=== PATIENT | female | born 1935 | race Caucasian/White ===

== ENCOUNTER 2024-02-15 11:15 | Inpatient (IN) ==
[2024-02-15] MEDS: MAGNESIUM SULFATE / D5W 1 GM/100 ML BAG IV STA (11:42)
[2024-02-15] MEDS: dilTIAZem HCl 5 MG/ML 5 ML VIAL IV STA ×2 (11:42→12:22)
--- NOTE | 2024-02-15 11:57 | Emergency Department Note ---
Impression & Plan Pneumonia, Atrial fibrillation with rapid ventricular response, SOB (shortness of breath) ED Provider Note NAME: JOANNE ROBERSON AGE: 88 SEX: F : 1935 ARRIVES VIA: Walk-In INFORMANT: Patient, ED PROVIDER(S): Salinas Rios DO CHIEF COMPLAINT: Shortness of breath HPI: The patient is an 88-year-old female who presented to the emergency department for an evaluation of shortness of breath. The patient has a history of atrial fibrillation. She has noticed a nonproductive cough. She denies having any fever or hemoptysis. She has been using [id number] medications such as Coricidin. She has a history of atrial fibrillation. She has been compliant with her outpatient medications otherwise. Has not been seen by her family doctor for any symptoms but came to the emergency department. ROS: See above HPI for pertinent positives & negatives. A total of 10 systems reviewed and were otherwise negative. PAST MEDICAL HISTORY: See Below PAST SURGICAL HISTORY: See Below FAMILY HISTORY: See Below SOCIAL HISTORY: See Below HOME MEDICATIONS: See Below ALLERGIES: See Below VITALS: See Below PHYSICAL EXAMINATION: GENERAL: The patient is awake and alert. She is somewhat anxious appearing. EYES: The conjunctivae are clear. The pupils are round and reactive. EARS, NOSE, MOUTH AND THROAT: The nose is without any evidence of any deformity. Mucous membranes are moist. Tongue is midline. NECK: The neck is nontender and supple. RESPIRATORY: Diminished breath sounds are noted through the left lung field. There is wheezing in both upper lung foreman. There was mild tachypnea. CARDIOVASCULAR: Tachycardic and irregular heart sounds were noted to auscultation. There is no definite murmur. GASTROINTESTINAL: The abdomen is soft. Abdomen is nontender. MUSCULOSKELETAL/EXTREMITIES: There is no evidence of gross deformity full range of motion is noted in the hips and shoulders. SKIN: There is no obvious evidence of any rash. There are no petechiae, pallor or cyanosis noted. NEUROLOGIC: Patient is awake alert and oriented x3 MEDICAL DECISION MAKING: The patient is an 88-year-old female who presented to the emergency department for an evaluation of difficulty breathing. The patient was having shortness of breath as well as cough. The patient did not have a fever. Lung sounds were abnormal. The patient was also found to be in atrial fibrillation with RVR. She was treated with fluid and IV Cardizem as well as IV magnesium. Chest x-ray appears to be consistent with a pulmonary infiltrate. For this reason the patient was started on a course of IV antibiotics. I discussed the patient's laboratory and radiographic studies with her. Given her findings in the emergency department I also [facility] have agreed to evaluate the patient in the department for further management and disposition. Triage Nursing notes reviewed. Prior medical records reviewed Vital Signs: reviewed and remarkable for tachycardia Differential diagnosis: Premature contractions, electrolyte abnormality, cardiac dysrhythmia, thyroid dysfunction, pulmonary embolism, infection, gastrointestinal, as well as other pathologies. ER treatment provided: See below Diagnostics interpreted by me: ECG: EKG was obtained in the emergency department. My interpretation is atrial fibrillation at 155 bpm. There was no PVCs noted. ST segment depressions were noted diffusely. This was compared to a tracing from November 07, 2020. Atrial fibrillation has replaced sinus rhythm compared to the previous tracing. Cardiac Monitoring: An order was placed for continuous cardiac monitoring. The monitor shows a rate of 123 bpm with atrial fibrillation and RVR. Laboratory studies: As stated above and show below. Imaging studies: See below. Radiographic imaging was reviewed by myself Consultation(s): Discussed case with Carol Ann who [facility] ED COURSE: Procedures: none Critical Care: I have personally spent greater than 45 minutes of critical care time in the direct management of this patient. This includes bedside care, interpretation of diagnostic studies, and testing, discussion with consultants, patient, and family members, and other required patient management activities. This 45 minutes is in excess of all separately billable procedures. Past Med/Surg History Problem List (Updated 02/15/24 @ 12:33 by Salinas Rios DO) SOB (shortness of breath) (Acute) Atrial fibrillation with rapid ventricular response (Acute) Pneumonia (Acute) Left knee pain (Acute) Travis's cyst of knee (Acute) Heart disease (Chronic) Hypertension (Chronic) DVT (deep venous thrombosis) (Chronic) Travis's cyst of knee (Acute) Social History Smoking Status: Never smoker Preferred Language: Georgian Feels Safe at Home: Yes Allergies Allergies Allergy/AdvReac Type Severity Reaction Status Date / Time aspirin Allergy Intermediate irritates Verified 02/12/24 15:14 stomach adhesive tape AdvReac Intermediate Rash Verified 02/15/24 12:25 Home Meds Home Medications Medication Instructions Recorded Confirmed apixaban 5 mg tablet (Eliquis) 5 mg PO BID 11/07/20 02/12/24 cholecalciferol (vitamin D3) 50 50 mcg PO DAILY 11/07/20 02/12/24 mcg (2,000 unit) capsule (Vitamin D3) cyanocobalamin (vitamin B-12) 1,000 mcg PO DAILY 11/07/20 02/12/24 1,000 mcg tablet (Vitamin B-12) furosemide 40 mg tablet (Lasix) 40 mg PO DAILY 11/07/20 02/12/24 loratadine 10 mg tablet (Allergy 10 mg PO DAILY 11/07/20 02/12/24 Relief (loratadine)) mirtazapine 7.5 mg tablet 7.5 mg PO HS 11/07/20 02/12/24 multivitamin 1 tab PO DAILY 11/07/20 02/12/24 ropinirole 1 mg tablet 1 mg PO QID 11/07/20 02/12/24 simvastatin 40 mg tablet 40 mg PO PM 11/07/20 02/12/24 spironolactone 25 mg tablet 25 mg PO DAILY 11/07/20 02/12/24 tamsulosin 0.4 mg capsule 0.4 mg PO DAILY 11/07/20 11/07/20 levothyroxine 100 mcg tablet 125 mcg PO DAILY 02/12/24 02/12/24 metoprolol succinate 25 mg 50 mg PO DAILY 02/12/24 02/12/24 tablet,extended release 24 hr Results & Data (ED) Vital Signs Vital Signs - 24 hr 02/15/24 11:18 02/15/24 11:34 02/15/24 11:34 Temperature 36.7 C 36.9 C Temperature Source Temporal Artery Scan Oral Pulse Rate 151 H Pulse Rate [Apical] 152 H Respiratory Rate 18 30 H Respiratory Effort / Characteristics Non-Labored Spontaneous Non-Labored Respiratory Depth Normal Normal Blood Pressure 149/101 H Blood Pressure [Right Arm] 156/128 H Blood Pressure Mean 117 Blood Pressure Mean [Right Arm] 137 Blood Pressure Position Sitting Pulse Oximetry 93 92 91 Oxygen Delivery Method Room Air Room Air Room Air Oxygen Flow Rate 0 Sepsis Recent Fever Within 48 Hours No Sepsis New/Unexplained Change in Mental Status No Sepsis Action Taken by Nursing No Action Required 02/15/24 12:30 Temperature Temperature Source Pulse Rate 123 H Pulse Rate [Apical] Respiratory Rate Respiratory Effort / Characteristics Respiratory Depth Blood Pressure Blood Pressure [Right Arm] Blood Pressure Mean Blood Pressure Mean [Right Arm] Blood Pressure Position Pulse Oximetry Oxygen Delivery Method Oxygen Flow Rate Sepsis Recent Fever Within 48 Hours Sepsis New/Unexplained Change in Mental Status Sepsis Action Taken by [facility] Medications Current Medication List: was personally reviewed by me Laboratory Data Attestation: I reviewed the patient's lab results. 02/15/24 11:41 02/15/24 11:41 Lab Results 02/15/24 Range/Units 11:41 WBC 20.14 H (4.8-10.8) K/ul RBC 4.83 (4.20-5.40) M/uL Hgb 15.1 (12.0-16.0) g/dl Hct 44.6 (37.0-47.0) % MCV 92.3 (80.0-100.0) fL MCH 31.3 (25.0-34.0) pg MCHC 33.9 (32.0-36.0) g/dL RDW Std Deviation 46.8 H (36.4-46.3) fL RDW Coeff of Rahel 13.7 (11.5-14.5) % Plt Count 302 (130-400) K/uL MPV 9.8 (9.4-12.4) fL Immature Gran % (Auto) 0.6 % Neut % (Auto) 91.1 % Lymph % (Auto) 1.8 % Cooke % (Auto) 5.1 % Eos % (Auto) 1.1 % Baso % (Auto) 0.3 % Neut # (Auto) 18.33 H (1.40-6.50) K/uL Lymph # (Auto) 0.37 L (1.20-3.40) K/uL Cooke # (Auto) 1.03 H (0.11-0.59) K/uL Eos # (Auto) 0.22 (0.00-0.50) K/uL Baso # (Auto) 0.06 (0.00-0.20) K/uL Immature Gran # (Auto) 0.13 (0.01-0.20) K/uL Toxic Vacuolation 1+ Sodium 135 L (136-145) mmol/L Potassium 4.2 (3.5-5.1) mmol/L Chloride 101 (98-107) mmol/L Carbon Dioxide 24 (21-32) mmol/L Anion Gap 10 (3-11) BUN 20 (6-23) mg/dl Creatinine 0.74 (0.6-1.2) mg/dl Est Cr Clr Drug Dosing 54.5 ml/min eGFR 78.26 BUN/Creatinine Ratio 27.0 H (10-20) Glucose 126 H (70-99(Fasting)) mg/dl Calcium 9.0 (8.6-10.3) mg/dl Magnesium 1.7 (1.7-2.4) mg/dl Total Bilirubin 2.1 H (0.2-1.0) mg/dl AST 18 (13-39) U/L ALT 21 (7-52) U/L Alkaline Phosphatase 71 (34-104) U/L Troponin I High Sens 15.6 H (0-14) pg/ml C-Reactive Protein 10.33 H (0-0.5) mg/dl Total Protein 7.1 (6.0-8.3) gm/dl Albumin 4.1 (3.4-5.0) gm/dl Globulin 3.0 (2.5-4.0) gm/dl Albumin/Globulin Ratio 1.4 (0.9-2) Administered Medications Magnesium Sulfate/Dextrose (Magnesium Sulfate / D5w) 1 gm in 100 mls @ 100 mls/hr IV NOW STA Stop: 02/15/24 12:34 Last Admin: 02/15/24 11:42 Dose: 100 mls/hr Documented By: MMF Sodium Chloride (Nss) 1,000 mls @ 999 mls/hr IV .Q1H1M ONE Stop: 02/15/24 12:57 Last Admin: 02/15/24 12:12 Dose: 999 mls/hr Documented By: MMF Discontinued Medications Diltiazem HCl (Diltiazem Hcl 5 Mg/Ml 5 Ml Vial) 10 mg IV NOW STA Stop: 02/15/24 11:36 Last Admin: 02/15/24 11:42 Dose: 10 mg Documented By: MMF Co-signed By: KMO Diltiazem HCl (Diltiazem Hcl 5 Mg/Ml 5 Ml Vial) 10 mg IV NOW STA Stop: 02/15/24 12:13 Last Admin: 02/15/24 12:22 Dose: 10 mg Documented By: FABIAN Co-signed By: SANDRA Imaging Data Attestation: I personally reviewed and interpreted this imaging study as follows: My Impression: 1 view x-ray was obtained in the emergency department. My interpretation is right middle lobe infiltrate, final report below. Radiologist's Impression: Chest X-Ray 02/15/24 11:35 XR chest 1V portable CLINICAL HISTORY: Dysrhythmia TECHNIQUE: Single frontal radiograph of the chest was obtained. Comparison: Comparison is made to chest radiograph 11/07/2020 FINDINGS: No lines and tubes are seen. Cardiomegaly is noted. There is prominence and cephalization of the vasculature with Bear B lines seen. Right upper lung airspace opacity is seen. No evidence of pleural effusion or pneumothorax. IMPRESSION: 1. Airspace opacity in the right upper lobe. This may represent atelectasis, pneumonia, and/or aspiration. 2. Cardiomegaly and moderate pulmonary edema. ACT 112: Negative or not required by law. Electronically signed by: Dennys Gutierrez M.D. 02/15/2024 12:02 PM Discharge Plan Visit Data Chief Complaint: Weakness Stated Complaint: WEAKNESS, SWEATS, NOT EATEN COUPLE DAYS ED Provider: Salinas Rios Discharge Problem: Pneumonia, Atrial fibrillation with rapid ventricular response, SOB (shortness of breath) Patient Disposition: Being Evaluated by Hospitalist Forms Stand Alone Forms: My [facility] Prescriptions Prescriptions: No Action multivitamin Tablet 1 tab PO DAILY furosemide [Lasix] 40 mg Tablet 40 mg PO DAILY ropinirole 1 mg Tablet 1 mg PO QID cyanocobalamin (vitamin B-12) [Vitamin B-12] 1,000 mcg Tablet 1,000 mcg PO DAILY spironolactone 25 mg Tablet 25 mg PO DAILY simvastatin 40 mg Tablet 40 mg PO PM tamsulosin 0.4 mg capsule 0.4 mg PO DAILY loratadine [Allergy Relief (loratadine)] 10 mg Tablet 10 mg PO DAILY mirtazapine 7.5 mg Tablet 7.5 mg PO HS cholecalciferol (vitamin D3) [Vitamin D3] 50 mcg (2,000 unit) Capsule 50 mcg PO DAILY Eliquis 5 mg Tablet 5 mg PO BID levothyroxine 100 mcg tablet 125 mcg PO DAILY metoprolol succinate 25 mg tablet extended release 24 hr 50 mg PO DAILY Referrals Referrals: PCP,NO [Physician] - Discharge Problem: Pneumonia Qualifiers: Pneumonia type: due to unspecified organism Laterality: right Lung location: m iddle lobe of lung Qualified Code(s): J18.9 - Pneumonia, unspecified organism
[2024-02-15 12:00] LABS: Hematocrit (blood only) 44.6 % (37.0-47.0); Hemoglobin 15.1 g/dl (12.0-16.0); Mean Corpuscular Hemoglobin 31.3 pg (25.0-34.0); Mean Corpuscular Hgb Conc 33.9 g/dL (32.0-36.0); Mean Corpuscular Volume 92.3 fL (80.0-100.0); Mean Platelet Volume 9.8 fL (9.4-12.4); Platelet Count 302 K/uL (130-400); RDW Coefficient of Variation 13.7 % (11.5-14.5); RDW Standard Deviation 46.8 fL (36.4-46.3); Red Blood Count 4.83 M/uL (4.20-5.40); White Blood Count 20.14 K/ul (4.8-10.8)
--- NOTE | 2024-02-15 12:03 | XRay Report ---
XR chest 1V portable CLINICAL HISTORY: Dysrhythmia TECHNIQUE: Single frontal radiograph of the chest was obtained. Comparison: Comparison is made to chest radiograph 11/07/2020 FINDINGS: No lines and tubes are seen. Cardiomegaly is noted. There is prominence and cephalization of the vasc ulature with Bear B lines seen. Right upper lung airspace opacity is seen. No evidence of pleural e ffusion or pneumothorax. IMPRESSION: 1. Airspace opacity in the right upper lobe. This may represent atelectasis, pneumonia, and/or aspir ation. 2. Cardiomegaly and moderate pulmonary edema. ACT 112: Negative or not required by law. Electronically signed by: Dennys Gutierrez M.D. 02/15/2024 12:02 PM
[2024-02-15] MEDS: SODIUM CHLORIDE 0.9% 1,000 ML IV ONE (12:12)
[2024-02-15 12:25] LABS: Albumin Globulin Ratio 1.4 (0.9-2); Albumin Level 4.1 gm/dl (3.4-5.0); Bilirubin,Total 2.1 mg/dl (0.2-1.0); C Reactive Protein 10.33 mg/dl (0-0.5); Creatinine Clr Calc Pharmacy 54.5 ml/min; Magnesium 1.7 mg/dl (1.7-2.4); Potassium 4.2 mmol/L (3.5-5.1); Total Protein 7.1 gm/dl (6.0-8.3)
[2024-02-15 12:26] LABS: Basophils # (auto) 0.06 K/uL (0.00-0.20); Basophils % (auto) 0.3 %; Eosinophils # (auto) 0.22 K/uL (0.00-0.50); Eosinophils % (auto) 1.1 %; Immature Granulocytes # (auto) 0.13 K/uL (0.01-0.20); Immature Granulocytes % (auto) 0.6 %; Lymphocytes # (auto) 0.37 K/uL (1.20-3.40); Lymphocytes % (auto) 1.8 %; Monocytes # (auto) 1.03 K/uL (0.11-0.59); Monocytes % (auto) 5.1 %; Neutrophils # (auto) 18.33 K/uL (1.40-6.50); Neutrophils % (auto) 91.1 %; Toxic Vacuolation 1+
[2024-02-15 12:29] LABS: Troponin I High Sensitivity 15.6 pg/ml (0-14)
[2024-02-15 12:35] LABS: Partial Thromboplastin Ratio 0.9; Partial Thromboplastin Time 25 Seconds (21-31); Prothrombin Time 11.1 Seconds (9.0-12.0)
[2024-02-15 12:38] LABS: Thyroid Stimulating Hormone 1.24 uIu/ml (0.300-4.500)
[2024-02-15 12:40] LABS: Influenza A virus by PCR Negative (Neg); Influenza B virus by PCR Negative (Neg); RSV by PCR Negative (Neg); SARS CoV2 RNA(COVID-19) Ceph NEGATIVE (Negative)
--- NOTE | 2024-02-15 12:42 | History & Physical Report ---
Date of Service February 15, 2024 Assessment & Plan (1) SOB (shortness of breath): (2) Atrial fibrillation with rapid ventricular response: (3) Pneumonia: (4) Hypothyroidism: (5) RLS (restless legs syndrome): (6) Dyslipidemia: (7) GERD (gastroesophageal reflux disease): (8) OXANA (obstructive sleep apnea): Plan This is an 88-year-old female with PMH of chronic atrial fibrillation on Eliquis, hypertension, dyslipidemia, hypothyroidism, OXANA, GERD, RLS following with neurology and other medical problems listed below who presents from home with progressive shortness of breath x 3 days and was found to have RUL PNA and A fib with RVR. RUL pneumonia Meets sepsis criteria given HR (also in A fib), resp rate 30, WBC 20K Lactate, procal WNL CT chest with extensive right upper lobe consolidation groundglass opacities consistent with pneumonia. Mild right lower lobe round glass opacities and a 1.4 cm left upper lobe groundglass opacity which are also likely infectious. A chest CT in 3 months to ensure resolution is recommended Continue empiric Rocephin and doxycycline Solu-medrol 40mg IV BID for today for diffuse wheezing, taper as improves Covid, Flu, RSV PCR negative, full RVP pending Atrial fibrillation with RVR EKG with A fib with HR in 150s, given Diltiazem bolus of 10mg x 2 in ED with improved HR to 130s. Starting diltiazem drip, continued monitoring in PCU Continue home Toprol 50mg daily, Eliquis for anticoagulation Keep K >4, Mg >2 (replaced in ED) Initial trop 15.6, continue to monitor Routine cards consult Pulmonary edema CXR notes cardiomegaly and moderate pulmonary edema CT chest mentions R trace pleural effusion only, appears to be more of an infectious process Given 20mg IV lasix in ED Echo from Dec 2023 with preserved EF, L atrium moderately enlarged Home diuretics schedule includes Lasix alternating 20mg and 40mg every other day, spironolactone 25mg daily - continue Cards on board as above Hypothyroidism TSH 1.240. Continue levothyroxine Restless leg syndrome Severe, follows with Dr. Shultz of neuro Continue home ropinirole QID, carbidopa-levodopa HS DVT Ppx: Eliquis Code status: FULL PCP: Natan Dispo: Admitted to PCU Patient seen in collaboration with Dr. Shah. Please see addendum. I spent a total of 75 minutes coordinating, documenting, and providing care for this patient excluding time spent in the performance of separately billed services. History of Present Illness Chief Complaint: Shortness of breath, palpitations Primary Care Provider: Veronica Gama MD This is an 88-year-old female with PMH of chronic atrial fibrillation on Eliquis, hypertension, dyslipidemia, hypothyroidism, OXANA, GERD, RLS following with neurology and other medical problems listed below who presents from home with progressive shortness of breath x 3 days. Endorses worsening cough and productive green sputum tinged with blood and SOB with associated lack of appetite. + One episode of vomiting earlier today. Had a sore throat earlier this week but that has resolved. Was seen at Urgent Care and felt to be viral URI, recommended symptomatic mgmt. Did recently complete steroid course prescribed at beginning of the month for sciatica prescribed by PCP. Denies No F/C, headache, dizziness, nausea, abd pain, dysuria, diarrhea or constipation. + Generalized weakness. Takes all medications as prescribed, including her Eliquis and Lasix this AM prior to arrival. Allergies Allergy/AdvReac Type Severity Reaction Status Date / Time aspirin Allergy Intermediate irritates Verified 02/12/24 15:14 stomach adhesive tape AdvReac Intermediate Rash Verified 02/15/24 12:25 Home Medications Medication Instructions Recorded Confirmed Type apixaban 5 mg tablet (Eliquis) 5 mg PO BID 11/07/20 02/15/24 History cholecalciferol (vitamin D3) 50 50 mcg PO DAILY 11/07/20 02/15/24 History mcg (2,000 unit) capsule (Vitamin D3) cyanocobalamin (vitamin B-12) 1,000 mcg PO DAILY 11/07/20 02/15/24 History 1,000 mcg tablet (Vitamin B-12) furosemide 40 mg tablet (Lasix) 40 mg PO UD 11/07/20 02/15/24 History loratadine 10 mg tablet (Allergy 10 mg PO DAILY 11/07/20 02/15/24 History Relief (loratadine)) mirtazapine 7.5 mg tablet 7.5 mg PO HS 11/07/20 02/15/24 History multivitamin 1 tab PO DAILY 11/07/20 02/15/24 History ropinirole 1 mg tablet 1 mg PO UD 11/07/20 02/15/24 History simvastatin 40 mg tablet 40 mg PO PM 11/07/20 02/15/24 History spironolactone 25 mg tablet 25 mg PO DAILY 11/07/20 02/15/24 History levothyroxine 100 mcg tablet 125 mcg PO DAILY 02/12/24 02/15/24 History metoprolol succinate 25 mg 50 mg PO DAILY 02/12/24 02/15/24 History tablet,extended release 24 hr carbidopa ER 50 mg-levodopa 200 mg 1 tab PO HS 02/15/24 02/15/24 History tablet,extended release levothyroxine 25 mcg tablet 25 mcg PO SUSA@0700 02/15/24 02/15/24 History Past Med/Surg History Problem List (Updated 02/15/24 @ 13:36 by Carol Ann Maciel PA-C) SOB (shortness of breath) (Acute) Atrial fibrillation with rapid ventricular response (Acute) Pneumonia (Acute) DVT (deep venous thrombosis) (Chronic) Travis's cyst of knee (Acute) Medical History (Updated 02/15/24 @ 13:36 by Carol Ann Maciel PA-C) RLS (restless legs syndrome) GERD (gastroesophageal reflux disease) Chronic atrial fibrillation Dyslipidemia OXANA (obstructive sleep apnea) Hypothyroidism Hypertension Travis's cyst of knee Surgical History (Updated 02/15/24 @ 13:37 by Carol Ann Maciel PA-C) History of appendectomy History of abdominal hysterectomy Family History (Updated 02/15/24 @ 13:37 by Carol Ann Maciel PA-C) Other Stroke Social History Smoking Status: Former smoker Hx Alcohol Use: Yes Alcohol type: wine Hx Substance Use: No Preferred Language: Welsh Communication Ability: Effective 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 Physical Exam Physical Exam: Please see Dr. Shah's addendum for physical exam. Results & Data Results & Data Vital Signs (Past 12 Hours) Vital Signs Temp Pulse Pulse Resp BP BP Pulse Ox 02/15/24 12:30 123 H 02/15/24 11:34 36.9 C 152 H 30 H 156/128 H 91 02/15/24 11:34 92 02/15/24 11:18 36.7 C 151 H 18 149/101 H 93 O2 Del Method O2 Flow Rate 02/15/24 12:30 02/15/24 11:34 Room Air 02/15/24 11:34 Room Air 0 02/15/24 11:18 Room Air Laboratory Results Short CBC 02/15/24 Range/Units 11:41 WBC 20.14 H (4.8-10.8) K/ul Hgb 15.1 (12.0-16.0) g/dl Hct 44.6 (37.0-47.0) % Plt Count 302 (130-400) K/uL BMP 02/15/24 11:41 Sodium 135 L Potassium 4.2 Chloride 101 Carbon Dioxide 24 BUN 20 Creatinine 0.74 Glucose 126 H Calcium 9.0 Liver Function 02/15/24 Range/Units 11:41 Total Bilirubin 2.1 H (0.2-1.0) mg/dl AST 18 (13-39) U/L ALT 21 (7-52) U/L Alkaline Phosphatase 71 (34-104) U/L Albumin 4.1 (3.4-5.0) gm/dl Diagnostic Findings Chest X-Ray 02/15/24 11:35 XR chest 1V portable CLINICAL HISTORY: Dysrhythmia TECHNIQUE: Single frontal radiograph of the chest was obtained. Comparison: Comparison is made to chest radiograph 11/07/2020 FINDINGS: No lines and tubes are seen. Cardiomegaly is noted. There is prominence and cephalization of the vasculature with Bear B lines seen. Right upper lung airspace opacity is seen. No evidence of pleural effusion or pneumothorax. IMPRESSION: 1. Airspace opacity in the right upper lobe. This may represent atelectasis, pneumonia, and/or aspiration. 2. Cardiomegaly and moderate pulmonary edema. ACT 112: Negative or not required by law. Electronically signed by: Dennys Gutierrez M.D. 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 Patient also reports nausea and vomiting today. Patient denies fever, acute changes in bowel or bladder habit. Patient reports sore throat getting better, reports appetite being poor. Patient denies belly pain/headache/dizziness. Patient reports ongoing weakness. Patient denies smoking/alcohol/recreational drug use. Full code as per my discussion with the patient and her at bedside. Labs reviewed, WBC elevated, T. bili 2.1, troponin at 15.6, CRP 10.33, BNP 267, procalcitonin and TSH WNL. Respiratory pathogen panel screen negative. CXR with RUL opacity, moderate pulmonary edema. EKG with A-fib RVR, rate 155. Active problems: RUL pneumonia/sepsis POA due to pneumonia: Heart rate/respiratory rate/WBC elevated at presentation. Follow admitting blood culture. Send sputum culture. Patient received ceftriaxone in the ED, continue. Add doxycycline. Solu-Medrol 40 Mg IV twice daily [wheezing present at bedside exam]. Taper down steroid as clinical condition improves. Pulmonary edema: Will discontinue IV fluid started at the ED, will give her a small dose of IV Lasix (20 mg) as patient noted to have audible crackles and wheezing at bedside exam. Recent echo from 01/16/2024: EF of 55 to 59%, LV cavity size and LV wall motion normal. Left atrium moderately enlarged. will defer to cardiology team if we need repeat echo. continue home diuresis from tomorrow. Repeat LFT in AM A-fib RVR: Admitting EKG with heart rate of 155, patient received Cardizem 10 Mg IV x 2 doses. Heart rate in high 110s at bedside exam. Will start patient on Cardizem drip, continue home metoprolol. Monitor replete electrolytes to keep K greater than 4 and Mg greater than 2. Trend troponin. On exam: GENERAL: Alert and oriented x3. NAD, on RA. appears ill/weak/sick. HEENT: No pallor, no icterus. Pupils equal, round and reactive to light. Oral mucosa moist. NECK: No JVD, no neck masses. HEART: S1 and S2 heard. irregular rate and rhythm. in 110s. No murmur, no gallop. RESPIRATORY SYSTEM: Normal AP diameter. No accessory muscle use. bl wheezing, bl crackles. ABDOMEN: Soft, bowel sounds present, nontender, no distention. CENTRAL NERVOUS SYSTEM: No facial droop. Speech is clear. Obeys simple commands. Moves extremities. EXTREMITIES: No edema, no erythema seen. I have seen and examined the patient and have discussed the case with the provider above. I agree with the assessment and plan as stated. Time spent: 35 min. (3) Pneumonia Laterality: right Lung location: middle lobe of lung Pneumonia type: due to unspecified organism Qualified Code(s): J18.9 - Pneumonia, unspecified organism
[2024-02-15] MEDS ORDERED: methylPREDNISolone 125 MG/2 ML VIAL IV SCH (13:15)
[2024-02-15] MEDS ORDERED: STAT IV Infusion **Titration per Protocol STA (13:17)
[2024-02-15] MEDS: cefTRIAXone SODIUM 2,000 MG/50 ML BAG IV STA (13:34)
[2024-02-15] MEDS: FUROSEMIDE INJ 20 MG/2 ML VIAL IV ONE (13:39)
--- NOTE | 2024-02-15 14:06 | CT Scan Report ---
CT OF THE CHEST WITHOUT IV CONTRAST CLINICAL HISTORY: ro pna, extent of pul edema, ? pl eff COMPARISON STUDY: Chest radiographs November 07, 2020 and February 15, 2024. CT DOSE: 475.66 mGy.cm TECHNIQUE: Axial images of the chest were obtained without IV contrast. Images were reviewed in the axial, sagittal, and coronal planes. IV contrast was not administered for this examination. Automat ed exposure control was utilized for the study. A dose lowering technique was utilized adhering to t he principles of ALARA. FINDINGS: Heart is moderately enlarged. Prominent partially calcified paratracheal lymph nodes are l ikely benign. Subcarinal calcified lymph nodes are benign. There is a calcified right hilar lymph nod e. There is no pericardial effusion. There is a trace right pleural effusion. There is no pneumothora x. Extensive right upper lobe airspace opacities are present with consolidation and ground glass opac ities. There are mild ground glass opacities within the right lower lobe and a 1.4 cm left upper lobe groundglass opacity on image 44 of 229. There is no central obstructing mass. There is no cavitation . Water attenuation left upper pole renal lesion is partially imaged. This probably reflects a cyst. IMPRESSION: 1. Extensive right upper lobe consolidation groundglass opacities consistent with pneumonia. Mild rig ht lower lobe round glass opacities and a 1.4 cm left upper lobe groundglass opacity which are also l ikely infectious. A chest CT in 3 months to ensure resolution is recommended. 2. Trace right pleural effusion. 3. Cardiomegaly. 4. Evidence for a previous granulomatous process. ACT 112: Negative or not required by law. Electronically signed by: David Reynoso M.D. 02/15/2024 2:04 PM
[2024-02-15] MEDS: dilTIAZem HCL 125 MG in DEXTROSE 5% 100 ML IV SCH (14:09)
--- NOTE | 2024-02-15 14:30 | Electrocardiogram Report ---
Test Reason : Blood Pressure : */* mmHG Vent. Rate : 155 BPM Atrial Rate : * BPM P-R Int : * ms QRS Dur : 64 ms QT Int : 278 ms P-R-T Axes : * -40 130 degrees QTcB Int : 446 ms Atrial fibrillation with rapid ventricular response Left axis deviation Abnormal ECG When compared with ECG of 07-Nov-2020 22:44, Atrial fibrillation has replaced Sinus rhythm Vent. rate has increased by 89 bpm Confirmed by Shamir Vazquez ([id number]) on 02/15/2024 2:29:47 PM Referred By: REFERRED SELF Confirmed By: Shamir Vazquez
[2024-02-15] MEDS: methylPREDNISolone 40 MG in SYRINGE 0 ML IV SCH (15:12)
[2024-02-15] MEDS ORDERED: ONDANSETRON INJ 2 MG/ML 2 ML VIAL IV PRN (15:46)
[2024-02-15] MEDS ORDERED: ACETAMINOPHEN 325 MG TAB PO PRN (15:46)
[2024-02-15] MEDS ORDERED: POLYETHYLENE (MIRALAX) 17 GM PACK PO PRN (15:46)
[2024-02-15 15:52] LABS: Adenovirus PCR Not Detected (NotDetected); Bordetella parapertussis PCR Not Detected (NotDetected); Bordetella pertussis PCR Not Detected (NotDetected); Chlamydia pneumoniae PCR Not Detected (NotDetected); Coronavirus 229E PCR Not Detected (NotDetected); Coronavirus CoV-2 (COVID19)PCR Not Detected (NotDetected); Coronavirus HKU1 PCR Not Detected (NotDetected); Coronavirus NL63 PCR Not Detected (NotDetected); Coronavirus OC43PCR Not Detected (NotDetected); Human Metapneumovirus PCR Not Detected (NotDetected); Influenza A PCR Not Detected (NotDetected); Influenza B PCR Not Detected (NotDetected); Mycoplasma pneumoniae PCR Not Detected (NotDetected); Parainfluenza Virus 1 PCR Not Detected (NotDetected); Parainfluenza Virus 2 PCR Not Detected (NotDetected); Parainfluenza Virus 3 PCR Not Detected (NotDetected); Parainfluenza Virus 4 PCR Not Detected (NotDetected); Respiratory Syncytial VirusPCR Not Detected (NotDetected); Rhinovirus/Enterovirus PCR Not Detected (NotDetected)
[2024-02-15] MEDS: rOPINIRole HCL 1 MG TABLET PO SCH ×2 (16:31→19:54)
[2024-02-15] MEDS: DOXYCYCLINE HYCLATE 100 MG in DEXTROSE 5% MINI-B 100 ML IV SCH (19:51)
[2024-02-15] MEDS: APIXABAN 5 MG TABLET PO SCH (19:54)
[2024-02-15] MEDS: MIRTAZAPINE TAB 15 MG TAB PO SCH (19:54)
[2024-02-15] MEDS: CARBIDOPA/LEVODOPA 50/200MG EXT REL TAB PO SCH (19:54)
[2024-02-15 20:16] LABS: Appearance Urine Clear (Clear); Bacteria Urine Automated None Seen (None Seen); Bilirubin Urine Negative (Negative); Blood Urine Negative (Negative); Cast Urine Automated 0-2 /lpf (0-2); Color Urine Orange; Epithelial Cell Urine Auto 0-2 /hpf (0-2); Glucose Urine UA Negative (Negative); Ketones Urine Negative (Negative); Leukocyte Esterase Urine Trace (Negative); Nitrite Urine Negative (Negative); Protein Urine Negative (Negative); RBC Urine Automated 0-2 /hpf (0-2); Specific Gravity Urine 1.008 (1.000-1.030); Urobilinogen Urine Negative (Negative); WBC Urine Automated 0-5 /hpf (0-5)
[2024-02-15] MEDS ORDERED: methylPREDNISolone 40 MG in SYRINGE 0 ML IV SCH (21:00)
[2024-02-15] MEDS ORDERED: SIMVASTATIN 40 MG TAB PO SCH (21:00)
[2024-02-16] MEDS: LEVOTHYROXINE SODIUM 100 MCG TABLET PO SCH (05:49)
[2024-02-16] MEDS ORDERED: LEVOTHYROXINE SODIUM 125 MCG TABLET PO SCH (06:30)
[2024-02-16 06:42] LABS: Hematocrit (blood only) 38.6 % (37.0-47.0); Hemoglobin 13.6 g/dl (12.0-16.0); Mean Corpuscular Hemoglobin 31.6 pg (25.0-34.0); Mean Corpuscular Hgb Conc 35.2 g/dL (32.0-36.0); Mean Corpuscular Volume 89.8 fL (80.0-100.0); Mean Platelet Volume 10.4 fL (9.4-12.4); Platelet Count 286 K/uL (130-400); RDW Coefficient of Variation 13.3 % (11.5-14.5); RDW Standard Deviation 43.9 fL (36.4-46.3); White Blood Count 16.92 K/ul (4.8-10.8)
[2024-02-16 07:13] LABS: Albumin Globulin Ratio 1.3 (0.9-2); Albumin Level 3.9 gm/dl (3.4-5.0); BUN Creatinine Ratio 31.7 (10-20); Calcium 8.5 mg/dl (8.6-10.3); Creatinine Clr Calc Pharmacy 66.2 ml/min; Globulin 3.1 gm/dl (2.5-4.0); Magnesium 2.1 mg/dl (1.7-2.4); Potassium 3.9 mmol/L (3.5-5.1)
[2024-02-16 07:26] LABS: Troponin I High Sensitivity 13.1 pg/ml (0-14)
[2024-02-16] MEDS: FUROSEMIDE 20 MG TAB PO SCH (07:46)
[2024-02-16] MEDS: MULTIVITAMIN TAB PO SCH (07:46)
[2024-02-16] MEDS: LORATADINE 10 MG TAB PO SCH (07:47)
[2024-02-16] MEDS: CYANOCOBALAMIN (B-12) 500 MCG TABLET PO SCH (07:47)
[2024-02-16] MEDS: METOPROLOL SUCC 50MG EXT REL TAB PO SCH ×2 (07:47→20:02)
[2024-02-16] MEDS: SPIRONOLACTONE 25 MG TAB PO SCH (07:47)
[2024-02-16] MEDS: CHOLECALCIFEROL 25 MCG (1000 UNITS) TAB PO SCH (07:48)
--- NOTE | 2024-02-16 07:59 | Electrocardiogram Report ---
Test Reason : Blood Pressure : */* mmHG Vent. Rate : 96 BPM Atrial Rate : 277 BPM P-R Int : * ms QRS Dur : 78 ms QT Int : 334 ms P-R-T Axes : * -15 152 degrees QTcB Int : 421 ms Atrial fibrillation with premature ventricular or aberrantly conducted complexes Possible Old Septal infarct (cited on or before 15-Feb-2024) Abnormal ECG When compared with ECG of 15-Feb-2024 11:32, Vent. rate has decreased by 59 bpm Borderline Criteria for Septal infarct now present Confirmed by Shamir Vazquez ([id number]) on 02/16/2024 7:59:13 AM Referred By: REFERRED SELF Confirmed By: Shamir Vazquez
--- NOTE | 2024-02-16 08:43 | Cardiology Consultation ---
Date of Consultation February 16, 2024 Assessment & Plan (1) Pneumonia: (2) Atrial fibrillation with rapid ventricular response: (3) Hypertension: Plan Patient admitted with worsening cough, SOB. Diagnosed with right upper lobe pneumonia. Elevated WBC consistent with infection. started on antibiotics. She has known chronic afib. Elevated rates on admission, consistent with acute illness. Recently metoprolol increased to 50 mg daily as an outpatient. will increase to 50 mg BID. she is currently on diltiazem gtt. Discussed with nurse to try and wean this as able. Continue anticoagulation with Eliquis 5 mg BID. BP initially elevated but improved. Recent outpatient echo with preserved LVEF. Minimally elevated HS troponin at 17 consistent with afib RVR. No symptoms to suggest ischemia. Continue outpatient meds including furosemide, spironolactone. Continue statin. Case discussed with Dr. Barth I spent a total of 55 minutes on the date of service in preparation, delivery, and documentation of the care provided to this patient, excluding any time spent in the performance of separately billed services. Nayeli Lund PA-C Department of Cardiology, [facility] This chart was completed in part utilizing Speech Voice Recognition Software. Grammatical errors, random word insertions, pronoun errors, and incomplete sentences are an occasional consequence of this system due to software limitations, ambient noise, and hardware issues. Any formal questions or concerns about the content, text, or information contained within the body of this dictation should be directly addressed to the provider for clarification. Supervising Physician Co-Signing Physician Notes I have personally performed a history and physical examination on the patient. I have reviewed the advance practitioner's documentation, and I agree with, and take responsibility for the plan of care. 88-year-old female presents to the emergency department due to cough and shortness of breath. Diagnosed with right sided pneumonia. Cardiology consultation requested due to atrial fibrillation with rapid ventricular response. History of chronic atrial fibrillation. Toprol-XL recently titrated 50 mg daily to improve rate control after review of ZIO monitor. She is chronically anticoagulant Eliquis. Heart rates improved with IV diltiazem infusion. Recommend wean diltiazem infusion as tolerated. Toprol-XL titrated to 50 mg twice daily. Continue telemetry monitoring and oral anticoagulation with Eliquis. I spent a total of 30 minutes on the date of service in preparation, delivery, and documentation of the care provided to this patient, excluding any time spent in the performance of separately billed services. Celestino Barth DO, [facility] History of Present Illness Reason for Consultation: SOB; Afib RVR Requesting Physician: Ju Hospitalist Attending Physician: Dr. Barth History of Present Illness Patient is an 88 year old female who presented to [facility] with complaints of cough, SOB. Diagnosed with right upper lobe pneumonia and started on antibiotics. WBC 20.14 on admission. Improving to 16.9 on 02/15. UPon admission, found to have afib RVR on admission. She has known/chronic afib. Recent outpatient zio with 100% burden of afib with average rate of 97 bmp. Metoprolol increased to 50 mg daily. She is appropriately anticoagulated with Eliquis. Elevated rates likely due to acute illness. She was started on IV diltiazem to aid with rate control. HS troponin minimally elevated at 15.6 - 17.8, then normalized at 13.1 TSH was normal. Respiratory panel was negative. Blood culture pending x2. Sputum culture pending Recently established with Levar Sanders PA-C in Dec 2023 Previously followed by [employer] in [place] but now will reside here locally. She had recent echo in Dec with normal LVEF 55%, moderate aortic sclerosis without stenosis. 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 SOB/Cough improving. She denies chest pain. She denies symptoms of palpitations or tachypalpitations. No orthopnea, PND or edema. History includes: 1. Atrial fibrillation 2. Coronary artery calcification 3. Hypertension 4. Dyslipidemia 5. GERD 6. Barretts esophagus with esophagitis 7. Hypothyroidism 8. Obstructive sleep apnea 9. Left upper lobe pulmonary nodule 10. Imaging with sequela of prior granulomatous infection Allergies Allergy/AdvReac Type Severity Reaction Status Date / Time aspirin Allergy Intermediate irritates Verified 02/12/24 15:14 stomach adhesive tape AdvReac Intermediate Rash Verified 02/15/24 12:25 Home Medications Medication Instructions Recorded Confirmed Type apixaban 5 mg tablet (Eliquis) 5 mg PO BID 11/07/20 02/15/24 History cholecalciferol (vitamin D3) 50 50 mcg PO DAILY 11/07/20 02/15/24 History mcg (2,000 unit) capsule (Vitamin D3) cyanocobalamin (vitamin B-12) 1,000 mcg PO DAILY 11/07/20 02/15/24 History 1,000 mcg tablet (Vitamin B-12) furosemide 40 mg tablet (Lasix) 40 mg PO UD 11/07/20 02/15/24 History loratadine 10 mg tablet (Allergy 10 mg PO DAILY 11/07/20 02/15/24 History Relief (loratadine)) mirtazapine 7.5 mg tablet 7.5 mg PO HS 11/07/20 02/15/24 History multivitamin 1 tab PO DAILY 11/07/20 02/15/24 History ropinirole 1 mg tablet 1 mg PO UD 11/07/20 02/15/24 History simvastatin 40 mg tablet 40 mg PO PM 11/07/20 02/15/24 History spironolactone 25 mg tablet 25 mg PO DAILY 11/07/20 02/15/24 History levothyroxine 100 mcg tablet 125 mcg PO DAILY 02/12/24 02/15/24 History metoprolol succinate 25 mg 50 mg PO DAILY 02/12/24 02/15/24 History tablet,extended release 24 hr carbidopa ER 50 mg-levodopa 200 mg 1 tab PO HS 02/15/24 02/15/24 History tablet,extended release levothyroxine 25 mcg tablet 25 mcg PO SUSA@0700 02/15/24 02/15/24 History Patient History Medical History (Updated 02/16/24 @ 08:50 by Nayeli Lund PA-C) RLS (restless legs syndrome) GERD (gastroesophageal reflux disease) Chronic atrial fibrillation Dyslipidemia OXANA (obstructive sleep apnea) Hypothyroidism Hypertension Travis's cyst of knee Surgical History (Updated 02/15/24 @ 13:37 by Carol Ann Maciel PA-C) History of appendectomy History of abdominal hysterectomy Family History (Updated 02/15/24 @ 13:37 by Carol Ann Maciel PA-C) Other Stroke Social History Smoking Status: Former smoker Hx Alcohol Use: Yes Alcohol type: wine Hx Substance Use: No Preferred Language: Panamanian Communication Ability: Effective [employer] Required: No Beliefs That Will Affect Care: None Current Living Situation: Spouse Other Information That Helps Us Care for You: No Feels Safe at Home: Yes Safety Concerns: Feels Safe At This Time Assistive Devices: Cane and Walker Review of Systems Review of Systems: All systems reviewed & are unremarkable except as noted in HPI & below Physical Exam Constitutional: WD/WN, vitals as above no acute distress Neck: trachea midline, no thyromegaly Respiratory: no labored breathing Auscultation: + diminished lung sounds; no crackles and no rales Cardiovascular: Rate/Rhythm: + irregularly irregular Heart Sounds: + murmur (II/ systolic murmur) Vessels: no JVD Extremities: no edema Gastrointestinal (Abdomen): normal bowel sounds, soft, nontender, no hepatosplenomegaly Neurologic: PERRL, EOMI, accommodation nl, no face palsy, no dysarthria Psychiatric: A+Ox3, euthymic affect Results & Data Vital Signs (Past 12 Hours) Vital Signs Temp Pulse Resp BP BP Pulse Ox O2 Del Method 02/16/24 07:20 37.0 C 109 H 18 150/86 H 94 Room Air 02/16/24 02:56 36.6 C 104 H 18 131/73 94 Room Air 02/15/24 23:21 36.9 C 101 H 20 113/84 93 Room Air Laboratory Results Cardiac Enzymes 02/15/24 02/15/24 02/16/24 Range/Units 11:41 17:41 05:29 AST 18 14 (13-39) U/L Troponin I High Sens 15.6 H 17.8 H 13.1 D (0-14) pg/ml B-Natriuretic Peptide 267 H (0-100) pg/ml Coagulation 02/15/24 Range/Units 11:41 PT 11.1 (9.0-12.0) Seconds APTT 25 (21-31) Seconds B-Natriuretic Peptide 267 H (0-100) pg/ml CBC 02/15/24 02/16/24 Range/Units 11:41 05:29 WBC 20.14 H 16.92 H (4.8-10.8) K/ul RBC 4.83 4.30 (4.20-5.40) M/uL Hgb 15.1 13.6 (12.0-16.0) g/dl Hct 44.6 38.6 (37.0-47.0) % Plt Count 302 286 (130-400) K/uL Neut # (Auto) 18.33 H (1.40-6.50) K/uL Lymph # (Auto) 0.37 L (1.20-3.40) K/uL [place] # (Auto) 1.03 H (0.11-0.59) K/uL Eos # (Auto) 0.22 (0.00-0.50) K/uL Baso # (Auto) 0.06 (0.00-0.20) K/uL Comprehensive Metabolic Panel 02/15/24 02/16/24 Range/Units 11:41 05:29 Sodium 135 L 135 L (136-145) mmol/L Potassium 4.2 3.9 (3.5-5.1) mmol/L Chloride 101 101 (98-107) mmol/L Carbon Dioxide 24 23 (21-32) mmol/L BUN 20 19 (6-23) mg/dl Creatinine 0.74 0.60 (0.6-1.2) mg/dl Glucose 126 H 172 H (70-99(Fasting)) mg/dl Calcium 9.0 8.5 L (8.6-10.3) mg/dl AST 18 14 (13-39) U/L ALT 21 3 L (7-52) U/L Alkaline Phosphatase 71 64 (34-104) U/L Total Protein 7.1 7.0 (6.0-8.3) gm/dl Albumin 4.1 3.9 (3.4-5.0) gm/dl Intake and Output 02/15/24 02/16/24 02/16/24 22:59 06:59 14:59 Intake Total 105.917 / 1213.750 257.833 / 1213.750 64.334 / 64.334 Output Total 650 / 650 Balance 105.917 / 563.750 -392.167 / 563.750 64.334 / 64.334 Intake: IV 105.917 / 1063.750 107.833 / 1063.750 64.334 / 64.334 Doxycycline Hyclate 100 mg In 100 / 100 Dextrose 5% Mini-B 100 ml @ 50 mls/hr IV Q12H [facility] Rx#:[id number] dilTIAZem HCL 125 mg In 5.917 / 113.750 107.833 / 113.750 64.334 / 64.334 Dextrose 5% 100 ml @ 10 MG/HR 10 mls/hr IV .[id number] [facility] Rx#: [id number] Oral 150 / 150 Output: Urine Amount (Catheter) 650 / 650 External 650 / 650 Other: # Unmeasured Voids 1 Weight 76.6 kg Weight Measurement Method Built in Bedscale Built in [facility] Diagnostic Findings Telemetry reviewed: Atrial fibrillation with variable ventricular rates ranging 90-130's EKG reviewed from admission dated 02/14/23: Afib with RVR at 155 bmp LAD Compared with outpatient EKG in Dec 2023, ventricular rates are faster No acute ischemic changes Repeat EKG from 02/16/24: Afib with improved ventricular rates at 96 bmp Possible old septal infarct No ischemic changes Chest X-Ray 02/15/24 11:35 XR chest 1V portable CLINICAL HISTORY: Dysrhythmia TECHNIQUE: Single frontal radiograph of the chest was obtained. Comparison: Comparison is made to chest radiograph 11/07/2020 FINDINGS: No lines and tubes are seen. Cardiomegaly is noted. There is prominence and cephalization of the vasculature with Bear B lines seen. Right upper lung airspace opacity is seen. No evidence of pleural effusion or pneumothorax. IMPRESSION: 1. Airspace opacity in the right upper lobe. This may represent atelectasis, pneumonia, and/or aspiration. 2. Cardiomegaly and moderate pulmonary edema. ACT 112: Negative or not required by law. tronically signed by: Dennys Gutierrez M.D. 02/15/2024 12:[address] 02/15/24 13:02 CT OF THE CHEST WITHOUT IV CONTRAST CLINICAL HISTORY: ro pna, extent of pul edema, ? pl eff COMPARISON STUDY: Chest radiographs November 07, 2020 and February 15, 2024. CT DOSE: 475.66 mGy.cm TECHNIQUE: Axial images of the chest were obtained without IV contrast. Images were reviewed in the axial, sagittal, and coronal planes. IV contrast was not administered for this examination. Automated exposure control was utilized for the study. A dose lowering technique was utilized adhering to the principles of ALARA. FINDINGS: Heart is moderately enlarged. Prominent partially calcified paratracheal lymph nodes are likely benign. Subcarinal calcified lymph nodes are benign. There is a calcified right hilar lymph node. There is no pericardial effusion. There is a trace right pleural effusion. There is no pneumothorax. Extensive right upper lobe airspace opacities are present with consolidation and ground glass opacities. There are mild ground glass opacities within the right lower lobe and a 1.4 cm left upper lobe groundglass opacity on image 44 of 229. There is no central obstructing mass. There is no cavitation. Water attenuation left upper pole renal lesion is partially imaged. This probably reflects a cyst. IMPRESSION: 1. Extensive right upper lobe consolidation groundglass opacities consistent with pneumonia. Mild right lower lobe round glass opacities and a 1.4 cm left upper lobe groundglass opacity which are also likely infectious. A chest CT in 3 months to ensure resolution is recommended. 2. Trace right pleural effusion. 3. Cardiomegaly. 4. Evidence for a previous granulomatous process. Prior outside data reviewed: January 16, 2024 TTE Interpretation Summary (as per Dr. Chaney): There was atrial fibrillation during the examination, rates 90-100 beats per minute. The left ventricular cavity size is normal. The LV wall thickness is moderately increased (concentric). The qualitative LV ejection fraction is 55-59% (normal). The left atrium is moderately enlarged. Moderate aortic valve sclerosis is present. There is moderate mitral annular calcification. There is restricted mobility of the posterior leaflet. Moderate mitral regurgitation is present. Moderate tricuspid regurgitation is present. January 17, 2024 EKG: Atrial fibrillation with a ventricular rate of 90 bpm. QTc 462 ms. [facility] report reviewed dated Dec 2023: Final Interpretation Atrial Fibrillation occurred continuously (100% burden), ranging from 47- 168 bpm (avg of 97 bpm). Isolated VEs were rare (<1.0%), VE Couplets were rare (<1.0%), and no VE Triplets were present. 1 patient triggered event and 1 diary events were submitted for interpretation. Interpretation of the events is technically limited due to the presence of artifact. One event it was associated with atrial fibrillation with ventricular rate 96-158 beats per minute. The other event correlates with the atrial fibrillation with occasional PVCs. Metoprolol increased to 50 mg after the monitor results were reviewed Medications Administered Current Inpatient Medications Acetaminophen (Acetaminophen 325 Mg Tab) 650 mg PO Q4H PRN PRN Reason: Pain or Fever Stop: 03/16/24 15:45 Apixaban (Apixaban 5 Mg Tablet) 5 mg PO BID [facility] Stop: 03/16/24 20:59 Last Admin: 02/16/24 07:48 Dose: 5 mg Carbidopa/Levodopa (Carbidopa/Levodopa 50/200mg Ext Rel Tab) 1 tab PO HS [facility] Stop: 03/16/24 20:59 Last Admin: 02/15/24 19:54 Dose: 1 tab Cyanocobalamin (Cyanocobalamin (B-12) 500 Mcg Tablet) 1,000 mcg PO DAILY [facility] Stop: 03/17/24 08:59 Last Admin: 02/16/24 07:47 Dose: 1,000 mcg Furosemide (Furosemide 40 Mg Tab) 40 mg PO Q2D@0900 [facility] Stop: 03/18/24 08:59 Furosemide (Furosemide 20 Mg Tab) 20 mg PO Q2D [facility] Stop: 03/17/24 08:59 Last Admin: 02/16/24 07:46 Dose: 20 mg Doxycycline Hyclate 100 mg/ (Dextrose) 100 mls @ 50 mls/hr IV Q12H [facility] Stop: 02/22/24 13:14 Last Admin: 02/16/24 06:33 Dose: 50 mls/hr Diltiazem HCl 125 mg/ Dextrose 125 mls @ 15 mls/hr IV .Q8H20M [facility]; Protocol Stop: 03/16/24 13:29 Last Titration: 02/16/24 08:33 Dose: 15 mg/hr, 15 mls/hr Methylprednisolone 40 mg/ (Syringe) 0.64 mls @ 1.5 mls/min IV BID [facility] Stop: 03/16/24 13:59 Last Admin: 02/16/24 07:48 Dose: 1.5 mls/min Ceftriaxone Sodium (Rocephin) 2,000 mg in 50 mls @ 100 mls/hr IV Q24H [facility] Stop: 02/23/24 12:59 Levothyroxine Sodium (Levothyroxine Sodium 125 Mcg Tablet) 125 mcg PO SuSa@0630 [facility] Stop: 03/18/24 06:29 Levothyroxine Sodium (Levothyroxine Sodium 100 Mcg Tablet) 100 mcg PO MoTuWeThFr@0630 [facility] Stop: 03/17/24 06:29 Last Admin: 02/16/24 05:49 Dose: 100 mcg Loratadine (Loratadine 10 Mg Tab) 10 mg PO DAILY [facility] Stop: 03/17/24 08:59 Last Admin: 02/16/24 07:47 Dose: 10 mg Metoprolol Succinate (Metoprolol Succ 50mg Ext Rel Tab) 50 mg PO DAILY [facility] Stop: 03/17/24 08:59 Last Admin: 02/16/24 07:47 Dose: 50 mg Mirtazapine (Mirtazapine Tab 15 Mg Tab) 7.5 mg PO HS [facility] Stop: 03/16/24 20:59 Last Admin: 02/15/24 19:54 Dose: 7.5 mg Multivitamins (Multivitamin Tab) 1 tab PO DAILY [facility] Stop: 03/17/24 08:59 Last Admin: 02/16/24 07:46 Dose: 1 tab Ondansetron HCl (Ondansetron Inj 2 Mg/Ml 2 Ml Vial) 4 mg IV Q6H PRN PRN Reason: Nausea Stop: 03/16/24 15:45 Polyethylene Glycol (Polyethylene (Miralax) 17 Gm Pack) 17 gm PO DAILY PRN PRN Reason: Constipation Stop: 03/16/24 15:45 Ropinirole HCl (Ropinirole Hcl 1 Mg Tablet) 1 mg PO TID@0900,1300,1700 [facility] Stop: 03/16/24 16:59 Last Admin: 02/16/24 07:46 Dose: 1 mg Ropinirole HCl (Ropinirole Hcl 1 Mg Tablet) 2 mg PO HS [facility] Stop: 03/16/24 20:59 Last Admin: 02/15/24 19:54 Dose: 2 mg Simvastatin (Simvastatin 40 Mg Tab) 40 mg PO PM [facility] Stop: 03/16/24 20:59 Spironolactone (Spironolactone 25 Mg Tab) 25 mg PO DAILY [facility] Stop: 03/17/24 08:59 Last Admin: 02/16/24 07:47 Dose: 25 mg Vitamin D (Cholecalciferol 25 Mcg (1000 Units) Tab) 50 mcg PO DAILY [facility] Stop: 03/17/24 08:59 Last Admin: 02/16/24 07:48 Dose: 50 mcg (1) Pneumonia Laterality: right Lung location: middle lobe of lung Pneumonia type: due to unspecified organism Qualified Code(s): J18.9 - Pneumonia, unspecified organism (3) Hypertension Hypertension type: primary hypertension Qualified Code(s): I10 - Essential (primary) hypertension
[2024-02-16] MEDS: cefTRIAXone SODIUM 2,000 MG/50 ML BAG IV SCH (12:35)
--- NOTE | 2024-02-16 13:53 | Hospitalist Progress Note ---
Date of Service February 16, 2024 Assessment & Plan (1) Severe sepsis with acute organ dysfunction: (2) Pneumonia: (3) Atrial fibrillation with rapid ventricular response: (4) Acute systolic heart failure: (5) Hypothyroidism: (6) OXANA (obstructive sleep apnea): Plan Patient with multilobar pneumonia triggering atrial fibrillation with rapid ventricular response and systolic heart failure. Has improved with initial treatments, however patient still remains on diltiazem drip requires hospital level care, interventions and specialty consultation. Reviewed cardiology consultation Increase metoprolol dosing Titrate diltiazem to off as able Continue Rocephin and doxycycline for multilobar pneumonia Transition to oral steroids for reactive airway Continue other home medications as prescribed Glucose elevated most likely due to steroids Monitor WBCs Activity as tolerated Attempted to update patient's primary contact, her sister. No answer, no identifying voicemail Admission and Anticipated Discharge Date Admission Date: February 15, 2024 Subjective Patient reports shortness of breath significantly improved. Physical Exam Physical Exam: Constitutional: Alert, mildly ill, nontoxic HEENT: Mucous membranes moist. Lungs: Decreased breath sounds, prolonged expiratory phase, diffuse faint wheezes, crackles right lung field CV: S1-S2, irregular irregular, tachycardic Abdomen: Soft, nontender, nondistended Extremities: No significant edema Neuro: No focal deficits Psych: Cooperative, normal mood Results & Data Results & Data Vital Signs (Past 12 Hours) Vital Signs Temp Pulse Pulse Resp BP BP Pulse Ox 02/16/24 11:35 36.6 C 75 19 131/84 94 02/16/24 08:00 102 H 02/16/24 08:00 02/16/24 07:20 37.0 C 109 H 18 150/86 H 94 02/16/24 02:56 36.6 C 104 H 18 131/73 94 O2 Del Method 02/16/24 11:35 Room Air 02/16/24 08:00 02/16/24 08:00 Room Air 02/16/24 07:20 Room Air 02/16/24 02:56 Room Air Diagnostic Findings Reviewed imaging, laboratory and diagnostic studies. Pertinent findings as below. WBCs 16.9 Hemoglobin 13.6 Electrolytes stable Glucose 172 Personally reviewed EKG, permanent atrial fibrillation, rates improved control (2) Pneumonia Laterality: right Lung location: middle lobe of lung Pneumonia type: due to unspecified organism Qualified Code(s): J18.9 - Pneumonia, unspecified organism
[2024-02-16] MEDS: COUGH DROP (SUGAR FREE) LOZ 24 LOZ/1 BOX BUCCAL STA (15:32)
[2024-02-17] MEDS: POTASSIUM CHLORIDE CRTAB 20 MEQ TABCR PO STA (05:14)
[2024-02-17] MEDS: METOPROLOL TARTRATE 1 MG/ML VIAL IV STA (05:14)
[2024-02-17 05:15] LABS: Hematocrit (blood only) 38.3 % (37.0-47.0); Hemoglobin 12.9 g/dl (12.0-16.0); Mean Corpuscular Hemoglobin 31.1 pg (25.0-34.0); Mean Corpuscular Hgb Conc 33.7 g/dL (32.0-36.0); Mean Corpuscular Volume 92.3 fL (80.0-100.0); Platelet Count 331 K/uL (130-400); RDW Coefficient of Variation 13.7 % (11.5-14.5); RDW Standard Deviation 46.8 fL (36.4-46.3); Red Blood Count 4.15 M/uL (4.20-5.40); White Blood Count 20.04 K/ul (4.8-10.8)
[2024-02-17] MEDS: LEVOTHYROXINE SODIUM 125 MCG TABLET PO SCH (05:17)
[2024-02-17 05:33] LABS: BUN Creatinine Ratio 32.3 (10-20); Calcium 8.7 mg/dl (8.6-10.3); Creatinine Clr Calc Pharmacy 61.1 ml/min; Magnesium 2.1 mg/dl (1.7-2.4); Potassium 4.2 mmol/L (3.5-5.1)
[2024-02-17] MEDS: METOPROLOL SUCC 50MG EXT REL TAB PO STA (07:10)
[2024-02-17] MEDS ORDERED: IPRATROPIUM BROMIDE NEB SOLN 0.02% 0.5MG/2.5ML VIAL NEB PRN (07:17)
[2024-02-17] MEDS: METOPROLOL SUCC 25MG EXT REL TAB PO SCH (07:58)
[2024-02-17] MEDS: FUROSEMIDE 40 MG TAB PO SCH (08:00)
[2024-02-17] MEDS: predniSONE 20 MG TAB PO SCH (09:28)
[2024-02-17] MEDS: hydrOXYzine HCl 10 MG TAB PO PRN (09:28)
--- NOTE | 2024-02-17 10:42 | Cardiology Progress Note ---
Date of Service February 17, 2024 Assessment & Plan (1) Pneumonia: (2) Atrial fibrillation with rapid ventricular response: Plan 88 year old female admitted with extensive right upper lobe pneumonia. Treatment as per Hospitalist. Cardiology consultation requested due to observed rapid ventricular response of the patient's chronic atrial fibrillation Chronic atrial fibrillation. Heart rates been driven by significant pneumonia. Agree with titration of metoprolol succinate for now. Wean to discontinue diltiazem today. Suspect improvement in patient's heart rate with improvement in pulmonary status. Prior to arrival metoprolol succinate dosing was 50 mg/day. Suspect patient will requiring metoprolol succinate 75 mg/day. [id number] Score 5 points. Continue apixaban (Eliquis) anticoagulation 5 mg twice per day Volume status: Compensated Hypertension. Add Losartan 25 mg/day Dyslipidemia. LDL cholesterol 72 mg/dL in August 2023, chronically prescribed simvastatin 40 mg/day which she seems to be tolerating well. Admission and Anticipated Discharge Date Admission Date: February 15, 2024 Supervising Physician Co-Signing Physician Notes I spent a total of 30 minutes on the date of service in preparation, delivery, and documentation of the care provided to this patient, excluding any time spent in the performance of separately billed services. I have personally performed a history and physical examination on the patient. I have reviewed the advance practitioner's documentation, and I agree with, and take responsibility for the plan of care. Subjective Patient seen and examined. Chart, medications, and telemetry reviewed. Notes significant cough productive of hunk's of green sputum for the past 2 weeks. Imaging with extensive right upper lobe consolidation consistent with pneumonia Feels weak and washed out, maybe a little better today as compared to yesterday, with ongoing cough all night long, hunks of thick green phlegm Telemetry: Atrial fibrillation with heart rates predominantly in the 80s to 100s while on IV diltiazem and metoprolol succinate at 50 mg twice per day Review of Systems Review of Systems: Complete Review of Systems is as stated above, negative, or noncontributory. Physical Exam Physical Exam: General: Alert and oriented x3. No acute distress. Pleasant. Comfortable. Cooperative. Skin: No rash Eyes: PER. Conjunctiva pink, sclera clear. HENT: Normocephalic. Atraumatic. Neck: No carotid bruits. No JVD. No HJR. Heart: Irregularly irregular at 90 bpm. Soft systolic murmur heard at the lower left sternal border. No diastolic murmur. Lungs: Right sided rhonchi. Clear to auscultation on the left. Abdomen: +BS. Soft. Nontender. No masses. No organomegaly. Extremities: No clubbing, cyanosis, or edema. Pulses: radial=2/4, posterior tibial=2/4. Limited neurological examination: No focal deficit. Results & Data Vital Signs (Past 12 Hours) Vital Signs Temp Pulse Pulse Resp BP BP Pulse Ox 02/17/24 07:57 145/93 H 02/17/24 07:15 90 02/17/24 07:15 02/17/24 07:01 36.9 C 92 H 19 175/117 H 94 02/17/24 05:59 88 02/17/24 05:58 162/104 H 02/17/24 04:23 70 162/109 H 02/17/24 04:22 99 H 161/109 H 02/17/24 03:22 36.3 C L 105 H 20 168/122 H 95 02/16/24 23:47 36.5 C 89 18 148/87 H 96 O2 Del Method 02/17/24 07:57 02/17/24 07:15 02/17/24 07:15 Room Air 02/17/24 07:01 Room Air 02/17/24 05:59 02/17/24 05:58 02/17/24 04:23 02/17/24 04:22 02/17/24 03:22 Room Air 02/16/24 23:47 Room Air Laboratory Results CBC 02/17/24 Range/Units 04:33 WBC 20.04 H (4.8-10.8) K/ul RBC 4.15 L (4.20-5.40) M/uL Hgb 12.9 (12.0-16.0) g/dl Hct 38.3 (37.0-47.0) % Plt Count 331 (130-400) K/uL Comprehensive Metabolic Panel 02/17/24 Range/Units 04:33 Sodium 135 L (136-145) mmol/L Potassium 4.2 (3.5-5.1) mmol/L Chloride 101 (98-107) mmol/L Carbon Dioxide 25 (21-32) mmol/L BUN 21 (6-23) mg/dl Creatinine 0.65 (0.6-1.2) mg/dl Glucose 153 H (70-99(Fasting)) mg/dl Calcium 8.7 (8.6-10.3) mg/dl Intake and Output 02/16/24 02/17/24 02/17/24 22:59 06:59 14:59 Intake Total 207.667 / 491.001 100 / 100 Balance 207.667 / 491.001 100 / 100 Intake: IV 207.667 / 491.001 100 / 100 Doxycycline Hyclate 100 mg In 100 / 200 100 / 100 Dextrose 5% Mini-B 100 ml @ 50 mls/hr IV Q12H [facility] Rx#:[id number] dilTIAZem HCL 125 mg In 107.667 / 241.001 Dextrose 5% 100 ml @ 5 MG/HR 5 mls/hr IV .Q24H [facility] Rx#: [id number] (1) Pneumonia Laterality: right Lung location: middle lobe of lung Pneumonia type: due to unspecified organism Qualified Code(s): J18.9 - Pneumonia, unspecified organism
[2024-02-17] MEDS: LOSARTAN POTASSIUM 25 MG TAB PO SCH ×2 (11:19→15:57)
[2024-02-17] MEDS ORDERED: METOPROLOL TARTRATE 1 MG/ML VIAL IV PRN (14:32)
--- NOTE | 2024-02-17 14:37 | Hospitalist Progress Note ---
Date of Service February 17, 2024 Assessment & Plan (1) Severe sepsis with acute organ dysfunction: (2) Pneumonia: (3) Atrial fibrillation with rapid ventricular response: (4) Acute systolic heart failure: (5) Hypothyroidism: (6) OXANA (obstructive sleep apnea): Plan Patient severe sepsis is improving, continue IV antibiotics Add Atrovent for some bronchospasm Continue diuresis Increase Toprol XL for blood pressure and heart rate control Add Lopressor IV for as needed blood pressure control Increase Cozaar for blood pressure control Monitor renal function and electrolytes with diuresis Activity as tolerated Continue oral prednisone Admission and Anticipated Discharge Date Admission Date: February 15, 2024 Subjective Patient feeling better, however blood pressure is extremely elevated. Heart rates are improved. States breathing feels better, was very wheezy again this morning Physical Exam Physical Exam: Constitutional: Alert, nontoxic HEENT: Mucous membranes moist. Lungs: Decreased breath sounds, crackles at bases no noted wheezes at this time CV: S1-S2, irregular Abdomen: Soft, nontender, nondistended Extremities: No significant edema Neuro: No focal deficits Psych: Cooperative, normal mood Results & Data Results & Data Vital Signs (Past 12 Hours) Vital Signs Temp Pulse Pulse Resp BP BP Pulse Ox 02/17/24 14:10 94 H 02/17/24 11:16 36.7 C 99 H 18 170/106 H 94 02/17/24 07:57 145/93 H 02/17/24 07:15 90 02/17/24 07:15 02/17/24 07:01 36.9 C 92 H 19 175/117 H 94 02/17/24 05:59 88 02/17/24 05:58 162/104 H 02/17/24 04:23 70 162/109 H 02/17/24 04:22 99 H 161/109 H 02/17/24 03:22 36.3 C L 105 H 20 168/122 H 95 O2 Del Method 02/17/24 14:10 02/17/24 11:16 Room Air 02/17/24 07:57 02/17/24 07:15 02/17/24 07:15 Room Air 02/17/24 07:01 Room Air 02/17/24 05:59 02/17/24 05:58 02/17/24 04:23 02/17/24 04:22 02/17/24 03:22 Room Air Diagnostic Findings Reviewed imaging, laboratory and diagnostic studies. Pertinent findings as below. WBCs 20.0, increased now due to steroids Hemoglobin 12.9 Electrolytes stable Creatinine 0.65 (2) Pneumonia Laterality: right Lung location: middle lobe of lung Pneumonia type: due to unspecified organism Qualified Code(s): J18.9 - Pneumonia, unspecified organism
[2024-02-17] MEDS: METOPROLOL SUCC 50MG EXT REL TAB PO SCH (20:00)
[2024-02-17] MEDS ORDERED: METOPROLOL SUCC 50MG EXT REL TAB PO SCH (21:00)
[2024-02-18 06:02] LABS: Hematocrit (blood only) 40.7 % (37.0-47.0); Hemoglobin 13.6 g/dl (12.0-16.0); Mean Corpuscular Hemoglobin 30.9 pg (25.0-34.0); Mean Corpuscular Hgb Conc 33.4 g/dL (32.0-36.0); Mean Corpuscular Volume 92.5 fL (80.0-100.0); Mean Platelet Volume 9.9 fL (9.4-12.4); Platelet Count 387 K/uL (130-400); RDW Coefficient of Variation 13.9 % (11.5-14.5); RDW Standard Deviation 47.1 fL (36.4-46.3); White Blood Count 16.88 K/ul (4.8-10.8)
[2024-02-18 06:19] LABS: BUN Creatinine Ratio 30.9 (10-20); Calcium 8.9 mg/dl (8.6-10.3); Creatinine Clr Calc Pharmacy 58.3 ml/min; Potassium 4.1 mmol/L (3.5-5.1)
[2024-02-18] MEDS: LOSARTAN POTASSIUM 50 MG TAB PO SCH (08:01)
--- NOTE | 2024-02-18 11:18 | Cardiology Progress Note ---
Date of Service February 18, 2024 Assessment & Plan (1) Pneumonia: (2) Atrial fibrillation with rapid ventricular response: Plan 88 year old female admitted with extensive right upper lobe pneumonia. Treatment as per Hospitalist. Cardiology consultation requested due to observed rapid ventricular response of the patient's chronic atrial fibrillation Chronic atrial fibrillation. - Elevated rates likely driven by the significant infection (right sided pneumonia). - Prior to arrival dosing of metoprolol succinate was 50 mg/day. - IV Diltiazem discontinued 02/15 - Rates controlled, currently on metoprolol succinate 100 mg twice a day [id number] Score 5 points. Continue apixaban (Eliquis) anticoagulation 5 mg twice per day Volume status: Compensated, on oral diuretic Hypertension. Losartan added this admission. Dyslipidemia. LDL cholesterol 72 mg/dL in August 2023, chronically prescribed simvastatin 40 mg/day which she seems to be tolerating well. Please contact with any questions or concerns. Admission and Anticipated Discharge Date Admission Date: February 15, 2024 Supervising Physician Co-Signing Physician Notes I spent a total of 30 minutes on the date of service in preparation, delivery, and documentation of the care provided to this patient, excluding any time spent in the performance of separately billed services. I have personally performed a history and physical examination on the patient. I have reviewed the advance practitioner's documentation, and I agree with, and take responsibility for the plan of care. Subjective Patient seen and examined. Chart, medications, and telemetry reviewed Tired this morning, and weak, up throughout the night due to restless legs. Cough improved. No chest pain. No palpitations. Telemetry: Rate controlled atrial fibrillation, heart rate currently in the 80s and 90s. Review of Systems Review of Systems: Complete Review of Systems is as stated above, negative, or noncontributory. Physical Exam Physical Exam: General: Alert and oriented x3. No acute distress. Eyes: PER. Conjunctiva pink, sclera clear. HENT: Normocephalic. Atraumatic. Neck: No JVD. Heart: Irregularly irregular at 86 bpm. Soft systolic murmur heard at the lower left sternal border. Lungs: Diminished. Clear. No wheeze. Abdomen: +BS. Soft. Nontender. No masses. No organomegaly. Extremities: No clubbing, cyanosis, or edema. Pulses: Posterior tibial=2/4. Limited neurological examination: No focal deficit. Results & Data Vital Signs (Past 12 Hours) Vital Signs Temp Pulse Pulse Resp BP BP Pulse Ox 02/18/24 07:30 85 02/18/24 07:30 02/18/24 07:27 36.7 C 90 18 138/90 94 02/18/24 04:22 36.8 C 76 17 152/87 H 95 02/17/24 23:25 36.4 C L 90 18 147/61 H 93 O2 Del Method 02/18/24 07:30 02/18/24 07:30 Room Air 02/18/24 07:27 Room Air 02/18/24 04:22 Room Air 02/17/24 23:25 Room Air Laboratory Results CBC 02/18/24 Range/Units 05:17 WBC 16.88 H (4.8-10.8) K/ul RBC 4.40 (4.20-5.40) M/uL Hgb 13.6 (12.0-16.0) g/dl Hct 40.7 (37.0-47.0) % Plt Count 387 (130-400) K/uL Comprehensive Metabolic Panel 02/18/24 Range/Units 05:17 Sodium 135 L (136-145) mmol/L Potassium 4.1 (3.5-5.1) mmol/L Chloride 101 (98-107) mmol/L Carbon Dioxide 25 (21-32) mmol/L BUN 21 (6-23) mg/dl Creatinine 0.68 (0.6-1.2) mg/dl Glucose 104 H (70-99(Fasting)) mg/dl Calcium 8.9 (8.6-10.3) mg/dl Intake and Output 02/17/24 02/18/24 02/18/24 22:59 06:59 14:59 Intake Total 340 / 490 100 / 100 Balance 340 / 490 100 / 100 Intake: IV 100 / 250 100 / 100 Doxycycline Hyclate 100 mg In 100 / 200 100 / 100 Dextrose 5% Mini-B 100 ml @ 50 mls/hr IV Q12H [facility] Rx#:[id number] Oral 240 / 240 Other: # Unmeasured Voids 2 Weight 76.4 kg (1) Pneumonia Laterality: right Lung location: middle lobe of lung Pneumonia type: due to unspecified organism Qualified Code(s): J18.9 - Pneumonia, unspecified organism
--- NOTE | 2024-02-18 12:14 | Hospitalist Progress Note ---
Date of Service February 18, 2024 Assessment & Plan (1) Severe sepsis with acute organ dysfunction: (2) Pneumonia: (3) Atrial fibrillation with rapid ventricular response: (4) Acute systolic heart failure: (5) Hypothyroidism: (6) OXANA (obstructive sleep apnea): Plan Patient with severe sepsis due to multilobar pneumonia with exacerbation of atrial fibrillation with rapid ventricular response and heart failure. Patient has significantly improved Transition to oral of antibiotics Continue oral diuresis Increase Toprol XL for heart rate control as well as blood pressure and improvement Cozaar started for blood pressure control Encourage patient to get up and ambulate today and build some strength in her legs Instructed patient to anticipate discharge tomorrow Admission and Anticipated Discharge Date Admission Date: February 15, 2024 Subjective Patient extremely nervous about going home, feels that she is still weak in her legs. However reports that her breathing is significantly improved Physical Exam Physical Exam: Constitutional: Alert, nontoxic in appearance HEENT: Mucous membranes moist. Lungs: Decreased breath sounds, wheezes significantly improved/resolved, CV: S1-S2, irregular Abdomen: Soft, nontender, nondistended Extremities: No significant edema Neuro: No focal deficits Psych: Cooperative, anxious Results & Data Results & Data Vital Signs (Past 12 Hours) Vital Signs Temp Pulse Pulse Resp BP BP Pulse Ox 02/18/24 07:30 85 02/18/24 07:30 02/18/24 07:27 36.7 C 90 18 138/90 94 02/18/24 04:22 36.8 C 76 17 152/87 H 95 O2 Del Method 02/18/24 07:30 02/18/24 07:30 Room Air 02/18/24 07:27 Room Air 02/18/24 04:22 Room Air Diagnostic Findings Reviewed imaging, laboratory and diagnostic studies. Pertinent findings as below. WBCs 16.8, improved (2) Pneumonia Laterality: right Lung location: middle lobe of lung Pneumonia type: due to unspecified organism Qualified Code(s): J18.9 - Pneumonia, unspecified organism
[2024-02-18] MEDS: DOXYCYCLINE HYCLATE 100 MG CAP PO SCH (20:26)
[2024-02-18] MEDS: CEFDINIR 300 MG CAP PO SCH (21:05)
[2024-02-19 06:22] LABS: Hematocrit (blood only) 41.9 % (37.0-47.0); Mean Corpuscular Hemoglobin 30.7 pg (25.0-34.0); Mean Corpuscular Hgb Conc 33.4 g/dL (32.0-36.0); Mean Corpuscular Volume 91.9 fL (80.0-100.0); Mean Platelet Volume 9.7 fL (9.4-12.4); Platelet Count 373 K/uL (130-400); RDW Coefficient of Variation 13.8 % (11.5-14.5); RDW Standard Deviation 47.1 fL (36.4-46.3); Red Blood Count 4.56 M/uL (4.20-5.40)
[2024-02-19 11:34] VITALS: PULSE 86; RESP 16; TEMP 98.1; O2SAT 96
--- NOTE | 2024-02-19 12:38 | Discharge Summary ---
Discharge Summary Date of Service February 19, 2024 Principal Dx & Hospital Course #1 = Principal Diagnosis (1) Severe sepsis with acute organ dysfunction: (2) Pneumonia: (3) Atrial fibrillation with rapid ventricular response: (4) Acute systolic heart failure: (5) Hypothyroidism: (6) OXANA (obstructive sleep apnea): Plan Patient presented to the emergency room with shortness of breath and tachycardia. In the emergency room evaluation consistent with severe sepsis due to multilobar pneumonia. Subsequently this decompensated her atrial fibrillation into RVR and heart failure due to her infection. Patient was admitted to the hospital. She was initially supported with oxygen. She was placed on broad-spectrum antibiotics to cover community-acquired pneumonia. She is initially placed on a Cardizem drip for atrial fibrillation rate control. Cardiology consultation was obtained. Her oral metoprolol dosing was increased for rate control. As her pneumonia improved and the addition of her medications her rates improved. She was titrated off oxygen. She was given a short course of oral steroids here in the hospital for some bronchospasm associated with the pneumonia. She was titrated off the Cardizem drip. Metoprolol was titrated up words for blood pressure and rate control. Losartan was added for blood pressure control as well. Her activity was increased. Her shortness of breath resolved. On the day of discharge her vital signs were stable. Blood pressure was significantly improved. Heart rate was controlled. She was on room air. And she was up and ambulating through the unit without difficulties. She was transition to oral antibiotics. She was continued on her outpatient anticoagulation to her hospitalization. She will be discharged home to follow- up with her PCP and outpatient ict account manager. Notes For Next Care Provider Medication Changes From Visit Doxycycline and Omnicef added for treatment of pneumonia Toprol dose increased Losartan added for blood pressure control Admission HPI Per Admitting Provider This is an 88-year-old female with PMH of chronic atrial fibrillation on Eliquis, hypertension, dyslipidemia, hypothyroidism, OXANA, GERD, RLS following with neurology and other medical problems listed below who presents from home with progressive shortness of breath x 3 days. Endorses worsening cough and productive green sputum tinged with blood and SOB with associated lack of appetite. + One episode of vomiting earlier today. Had a sore throat earlier this week but that has resolved. Was seen at Urgent Care and felt to be viral URI, recommended symptomatic mgmt. Did recently complete steroid course prescribed at beginning of the month for sciatica prescribed by PCP. Denies No F/C, headache, dizziness, nausea, abd pain, dysuria, diarrhea or constipation. + Generalized weakness. Takes all medications as prescribed, including her Eliquis and Lasix this AM prior to arrival. Admission Exam Per Admitting Provider See H&P Discharge Exam Constitutional: Alert, nontoxic, no acute distress HEENT: Mucous membranes moist. Lungs: Improved airflow, decreased, no wheezes rales or rhonchi CV: S1-S2, irregular, controlled rate Abdomen: Soft, nontender, nondistended Extremities: No significant edema Neuro: No focal deficits Psych: Cooperative, normal mood Updated Medication List Medication Instructions Recorded Confirmed Type apixaban 5 mg tablet (Eliquis) 5 mg PO BID 11/07/20 02/15/24 History cholecalciferol (vitamin D3) 50 50 mcg PO DAILY 11/07/20 02/15/24 History mcg (2,000 unit) capsule (Vitamin D3) cyanocobalamin (vitamin B-12) 1,000 mcg PO DAILY 11/07/20 02/15/24 History 1,000 mcg tablet (Vitamin B-12) furosemide 40 mg tablet (Lasix) 40 mg PO UD 11/07/20 02/15/24 History loratadine 10 mg tablet (Allergy 10 mg PO DAILY 11/07/20 02/15/24 History Relief (loratadine)) mirtazapine 7.5 mg tablet 7.5 mg PO HS 11/07/20 02/15/24 History multivitamin 1 tab PO DAILY 11/07/20 02/15/24 History ropinirole 1 mg tablet 1 mg PO UD 11/07/20 02/15/24 History simvastatin 40 mg tablet 40 mg PO PM 11/07/20 02/15/24 History spironolactone 25 mg tablet 25 mg PO DAILY 11/07/20 02/15/24 History levothyroxine 100 mcg tablet 125 mcg PO DAILY 02/12/24 02/15/24 History metoprolol succinate 25 mg 50 mg PO DAILY 02/12/24 02/15/24 History tablet,extended release 24 hr carbidopa ER 50 mg-levodopa 200 mg 1 tab PO HS 02/15/24 02/15/24 History tablet,extended release levothyroxine 25 mcg tablet 25 mcg PO SUSA@0700 02/15/24 02/15/24 History cefdinir 300 mg capsule 300 mg PO BID 5 days #10 caps 02/19/24 Rx doxycycline hyclate 100 mg capsule 100 mg PO BID 5 days #10 caps 02/19/24 Rx losartan 50 mg tablet 50 mg PO QAM 30 days #30 tabs 02/19/24 Rx metoprolol succinate 50 mg 100 mg (2 x 50 mg) PO BID 30 days 02/19/24 Rx tablet,extended release 24 hr #120 tabs Hospital Stay Data Consultations 02/15/24 12:12 ED Decision to Admit Stat 02/15/24 13:13 Consult Cardiology Routine Diagnostic Imagining Performed 02/15/24 13:02 CT chest diagnostic wo con Routine Reviewed imaging, laboratory and diagnostic studies. Pertinent findings as below. WBCs 13.8, significantly decreased, Hemoglobin 14.0 CT of the chest showed multilobar pneumonia Blood cultures no growth Basic metabolic profile stable Creatinine 0.68 Pending Results Patient Have Any Pending Studies at Discharge: No Discharge Instructions Given to Patient (Per Discharging Provider) Repeat chest CT approximately 3 to 4 months to ensure clearing Total Time Total Time Spent Total Time Spent (In Minutes): 35
[2024-02-19 12:45] VITALS: BP 135/89
== END 2024-02-19 13:56 | disposition home or self-care (01) | DRG 871 ==
LOC: ED 11:15 → SUATTDRO 12:41 → 2S 12:41